=== PATIENT | female | born 1985 | race Hispanic/Latino ===

== ENCOUNTER 2021-05-18 16:00 | Emergency (ER) | payer OTHER, SELFPAY ==
[~2021-05-18] VITALS: Ht 157.5 cm; Wt 76.2 kg
[2021-05-18 16:01] VITALS: BP 137/100
[2021-05-18] MEDS ORDERED: NIRM1TAB PO (16:52)
[2021-05-18] MEDS ORDERED: D-ME1POW16 PO (16:52)
[2021-05-18] MEDS ORDERED: ACETAMINOPHEN WITH CODEINE 1 TAB TAB PO ONE (17:00)
== END 2021-05-18 17:17 | disposition home or self-care (01) ==
LOC: EDH 16:00
DX: U07.1 COVID-19 (principal)
CPT/HCPCS: 87635; 87804 ×2; 99283; C9803

== ENCOUNTER 2021-05-30 07:12 | Day surgery (SDC) | payer SELFPAY ==
[2021-05-28 12:45] VITALS: BP 141/90
[2021-05-28 13:11] LABS: BASOPHILS % (AUTO) 0.8 % (0.0-5.0); EOSINOPHILS % (AUTO) 1.6 % (0.0-8.0); HEMATOCRIT 38.2 % (36-48); LYMPHOCYTES % (AUTO) 20.8 % (21.0-51.0); MEAN CORPUSCULAR HEMOGLOBIN 26.1 pg (27.0-33.0); MEAN CORPUSCULAR HGB CONC 32.2 g/dL (32.0-36.0); MEAN CORPUSCULAR VOLUME 80.9 fL (79-99); MONOCYTES % (AUTO) 7.1 % (3.0-13.0); NEUTROPHILS % (AUTO) 69.3 % (40.0-77.0); PLATELET COUNT (AUTO) 389 K/uL (130-400); RED BLOOD CELL COUNT(AUTO) 4.72 MIL/uL (4.00-5.50); RED CELL DISTRIBUTION WIDTH 13.2 % (11.0-15.5); WHITE BLOOD COUNT (AUTO) 7.4 K/uL (4.8-10.8)
[2021-05-28 13:27] LABS: INR 0.94 (0.85-1.15); PROTHROMBIN TIME 10.3 SEC (9.6-11.6)
[2021-05-28 13:28] LABS: ALBUMIN 3.9 g/dL (3.5-5.0); BILIRUBIN,TOTAL 0.6 mg/dL (0.2-1.0); CREATININE 0.6 mg/dL (0.5-1.5); POTASSIUM 3.5 mmol/L (3.5-5.1); TOTAL PROTEIN, SERUM 8.4 g/dL (6.0-8.3)
[2021-05-28 13:29] LABS: PARTIAL THROMBOPLASTIN TIME 28.2 SEC (26.3-35.5)
[2021-05-30] VITALS (15 sets, daily range): BP systolic 117–139; BP diastolic 68–87
[~2021-05-30] VITALS: Ht 157.5 cm; Wt 86.7 kg
[~2021-05-30 07:12] MED LIST: IBUP-2077 PO
[2021-05-30] MEDS ORDERED: IOHEXOL-350 50ML VIAL IV ONE (08:09)
[2021-05-30] MEDS ORDERED: LACTATED RINGERS 1000ML 1,000 ML IV ONE (10:41)
[2021-05-30] MEDS ORDERED: PROPOFOL 10 MG/ML 20ML VIAL IV ONE (10:49)
[2021-05-30] MEDS ORDERED: FENTANYL CITRATE PF 50 MCG/1 ML 2ML VIAL ONE (10:51)
[2021-05-30] MEDS ORDERED: LIDOCAINE PF 100MG/5ML (2%) SYRINGE 5ML ONE (10:51)
[2021-05-30] MEDS ORDERED: CEFAZOLIN SODIUM 1 GM VIAL ONE ×2 (11:08→11:11)
[2021-05-30] MEDS ORDERED: GENTAMICIN 80 MG/NS 100 ML PB 100 ML IV ONE (11:19)
[2021-05-30] MEDS ORDERED: KETOROLAC 30MG VIAL (30MG/ML) ONE (11:54)
[2021-05-30] MEDS ORDERED: MEPERIDINE-PF 25 MG/ML SYG ONE (12:08)
[2021-05-30] MEDS ORDERED: ONDANSETRON 4MG INJ ONE (12:08)
== END 2021-05-30 13:44 | disposition home or self-care (01) ==
LOC: DAH 07:12
PROVIDERS: ATTEND Urology Pediatric Urology
DX: N20.1 Calculus of ureter (principal); Z20.822 Contact with and (suspected) exposure to COVID-19; Z79.01 Long term (current) use of anticoagulants; Z98.890 Other specified postprocedural states; Z98.891 History of uterine scar from previous surgery; Z98.51 Tubal ligation status
CPT/HCPCS: 36415; 52356; 71045; 74420; 80053; 85025; 85610; 85730; 87071; 87088; 87205; 87635; 93005; A4215; A4216; A4221; A4222; A4223 ×2; A4335; A4354; A4510; A4600; A4649; A4663; A6260; C1758; C1769; C2617; C9803; J0690 ×2; J1580; J1885; J2001; J2175; J2405; J2704; J3010; J7120; Q9967

== ENCOUNTER 2021-10-11 13:20 | Emergency (ER) | payer MEDICAID, OTHER, SELFPAY ==
[~2021-10-11] VITALS: Ht 157.5 cm; Wt 86.6 kg
[2021-10-11 13:57] LABS: APPEARANCE,URINE Clear (CLEAR); BILIRUBIN,URINE Negative (NEGATIVE); COLOR,URINE Yellow (YELLOW); GLUCOSE, URINE (UA) Negative (NEGATIVE); KETONES,URINE Negative (NEGATIVE); LEUKOCYTE ESTERASE ,URINE Large (NEGATIVE); NITRATE,URINE Positive (NEGATIVE); OCCULT BLOOD,URINE Moderate (NEGATIVE); PROTEIN,URINE Negative (NEGATIVE); UROBILINOGEN,URINE 0.2 mg/dL (0.2-1.0)
[2021-10-11 14:02] LABS: BASOPHILS % (AUTO) 0.7 % (0.0-5.0); HEMATOCRIT 36.9 % (36-48); LYMPHOCYTES % (AUTO) 15.1 % (21.0-51.0); MEAN CORPUSCULAR HGB CONC 32.2 g/dL (32.0-36.0); MEAN CORPUSCULAR VOLUME 80.7 fL (79-99); MONOCYTES % (AUTO) 7.8 % (3.0-13.0); NEUTROPHILS % (AUTO) 75.1 % (40.0-77.0); PLATELET COUNT (AUTO) 356 K/uL (130-400); RED BLOOD CELL COUNT(AUTO) 4.57 MIL/uL (4.00-5.50); RED CELL DISTRIBUTION WIDTH 14.9 % (11.0-15.5); WHITE BLOOD COUNT (AUTO) 9.1 K/uL (4.8-10.8)
[2021-10-11 14:06] LABS: CREATININE 0.7 mg/dL (0.5-1.5); POTASSIUM 3.7 mmol/L (3.5-5.1)
[2021-10-11 14:11] LABS: ALBUMIN 3.4 g/dL (3.5-5.0); BILIRUBIN,TOTAL 0.7 mg/dL (0.2-1.0); TOTAL PROTEIN, SERUM 7.9 g/dL (6.0-8.3)
[2021-10-11 14:20] LABS: BACTERIA,URINE Rare /HPF (None Seen); RBC,URINE 0-1 /HPF (0-1); SQUAMOUS EPITHELIAL CELL,UR Rare /HPF (0-2); WBC,URINE 0-1 /HPF (0-1)
[2021-10-11] MEDS ORDERED: PHENAZOPYRIDINE HCL 200 MG TABLET PO ONE (14:30)
[2021-10-11] MEDS ORDERED: CEFTRIAXONE 1G VIAL IVP ONE (14:30)
[2021-10-11] MEDS ORDERED: ONDANSETRON ODT 4MG TAB SL ONE (14:30)
[2021-10-11] MEDS ORDERED: LIDOCAINE HCL MPF 1% 5ML VIAL ONE (14:44)
[2021-10-11] MEDS ORDERED: CEPH500B PO (15:24)
[2021-10-11] MEDS ORDERED: PHEN-847 PO (15:24)
[2021-10-11 15:30] VITALS: BP 135/89
== END 2021-10-11 15:47 | disposition home or self-care (01) ==
LOC: EDH 13:20
DX: N39.0 Urinary tract infection, site not specified (principal); N20.0 Calculus of kidney; R03.0 Elevated blood-pressure reading, without diagnosis of hypertension; E66.9 Obesity, unspecified; Z93.6 Other artificial openings of urinary tract status; Z98.51 Tubal ligation status; Z79.1 Long term (current) use of non-steroidal anti-inflammatories (NSAID); Z68.34 Body mass index [BMI] 34.0-34.9, adult
CPT/HCPCS: 36415; 74176; 80053; 81001; 81025; 85025; 87077; 87088; 87186; 96372; 99284; J0696; J3490

== ENCOUNTER 2022-01-24 09:08 | Emergency (ER) | payer MEDICAID, OTHER ==
[~2022-01-24] VITALS: Ht 157.5 cm; Wt 89.8 kg
[~2022-01-24 09:08] MED LIST changes: +CEPH500B PO; +PHEN-847 PO
[2022-01-24 10:10] LABS: APPEARANCE,URINE CLEAR (CLEAR); BILIRUBIN,URINE NEGATIVE (NEGATIVE); COLOR,URINE COLORLESS (YELLOW); GLUCOSE, URINE (UA) NEGATIVE (NEGATIVE); KETONES,URINE NEGATIVE (NEGATIVE); LEUKOCYTE ESTERASE ,URINE NEGATIVE Leu/uL (NEGATIVE); NITRATE,URINE NEGATIVE (NEGATIVE); OCCULT BLOOD,URINE NEGATIVE (NEGATIVE); PROTEIN,URINE NEGATIVE (NEGATIVE); UROBILINOGEN,URINE 0.2 mg/dL (0.2-1.0)
[2022-01-24] MEDS ORDERED: KETOROLAC 60 MG VIAL (30MG/ML) IM ONE (11:30)
[2022-01-24] MEDS ORDERED: IBUP-2070 PO (12:39)
[2022-01-24 12:44] VITALS: BP 128/78
== END 2022-01-24 12:58 | disposition home or self-care (01) ==
LOC: EDH 09:08
DX: M54.50 Low back pain, unspecified (principal); N20.0 Calculus of kidney; R03.0 Elevated blood-pressure reading, without diagnosis of hypertension; Z98.890 Other specified postprocedural states; Z79.899 Other long term (current) drug therapy
CPT/HCPCS: 99284; 76770; 87088; 81003; 96372; J1885